=== PATIENT | female | born 1955 | race Caucasian/White ===

== ENCOUNTER → 2020-03-17 | Day surgery (SDC) | payer OTHER ==
--- NOTE | 2020-03-19 17:21 | PATH ---
Cytology Non-Gynecological Report Patient Name: BINTA CUEVA [facility]. Rec. #: [id number] /Age/Gender: 1955 (Age: 64) / F Account: [id number] Location: RADIOLOGY INTER Taken: 03/17/2020 Received: 03/17/2020 Reported: 03/19/2020 Physicians: Rahul Engle M.D. Specimen(s) Received LEFT THYROID FNA Clinical History Right thyroid nodule 1.25 x 0.82 x 1.05cm Final Diagnosis THYROID, RIGHT, FINE NEEDLE ASPIRATION: SATISFACTORY FOR EVALUATION [place] CLASS II: BENIGN SMALL FOLLICULAR CELLS AND COLLOID PRESENT, CONSISTENT WITH A BENIGN FOLLICULAR NODULE. Electronically Signed Maye Mayberry M.D. Gross Description Received are eight direct smears, four of which are air-dried and Diff-Quik stained, and four of which are alcohol fixed and Pap stained. Also received is 20 ml of bloody formalin from which one cellblock is prepared.
== END | disposition home or self-care (01) ==
LOC: JRADIR 09:57
PROVIDERS: ATTEND Internal Medicine Endocrinology, Diabetes & Metabolism
PROC: 0G9G3ZX Drainage of Left Thyroid Gland Lobe, Percutaneous Approach, Diagnostic (ICD-10-PCS; principal; 2020-03-17)
DX: E04.1 Nontoxic single thyroid nodule (principal)
CPT/HCPCS: 76942; 88173; 88305-TC

== ENCOUNTER 2025-06-10 06:23 | Day surgery (SDC) | payer OTHER, MEDICARE ==
[2025-05-29 09:14] VITALS: BMI 30.7
[2025-06-10 11:32] VITALS: RESP 18; TEMP 97.4
[2025-06-10 12:25] VITALS: BP 120/84; PULSE 75
== END 2025-06-10 12:25 | disposition home or self-care (01) ==
LOC: JASU-ENDO 06:23
PROVIDERS: ATTEND Internal Medicine Gastroenterology
PROC: 0DBN8ZX Excision of Sigmoid Colon, Via Natural or Artificial Opening Endoscopic, Diagnostic (ICD-10-PCS; 2025-06-10)
PROC: 0DB98ZX Excision of Duodenum, Via Natural or Artificial Opening Endoscopic, Diagnostic (ICD-10-PCS; 2025-06-10)
PROC: 0DB78ZX Excision of Stomach, Pylorus, Via Natural or Artificial Opening Endoscopic, Diagnostic (ICD-10-PCS; 2025-06-10)
PROC: 0DB68ZX Excision of Stomach, Via Natural or Artificial Opening Endoscopic, Diagnostic (ICD-10-PCS; 2025-06-10)
PROC: 0DBP8ZX Excision of Rectum, Via Natural or Artificial Opening Endoscopic, Diagnostic (ICD-10-PCS; principal; 2025-06-10 11:00)
DX: Z12.11 Encounter for screening for malignant neoplasm of colon (principal); D12.8 Benign neoplasm of rectum; D12.5 Benign neoplasm of sigmoid colon; K64.8 Other hemorrhoids; Z86.0101 Personal history of adenomatous and serrated colon polyps; K29.50 Unspecified chronic gastritis without bleeding